=== PATIENT | female | born 1960 | race Caucasian/White ===

== ENCOUNTER → 2017-10-13 | Outpatient (CLI) | payer BC ==
[~2017-10-13] MED LIST: GADOBUTROL 7.5 MMOL/7.5 ML VIAL INT ART ONE; IOHEXOL 300 MG/ML 50 ML VIAL. INT ART ONE; LIDOCAINE 1% Multi-Dose 20 ML VIAL. ID ONE
--- NOTE | 2017-10-13 17:07 | KCIC ---
MR arthrogram of the right shoulder Indication: Right shoulder pain. Prior rotator cuff repair. Technique: Intra-articular contrast injected into the glenohumeral joint and is reported separately. Routine 4 plane sequences were obtained, including ABER positioning. COMPARISON: Not currently available. Findings: Acromioclavicular joint: Mildly degenerative. No significant undersurface mass effect. Rotator cuff: Prior surgical reattachment. Severe thinning of the supraspinatus tendon, measuring as little as 1 mm. There is retraction of undersurface fibers by 2.0 cm. There is a tiny area at the critical zone of the supraspinatus where there appears to be a 1 mm pinpoint through and through defect with minimal spill of contrast into the adjacent subdeltoid bursa. Coronal series 6, image 14. Infraspinatus tendon intact. Subscapularis tendon intact. Mild rotator cuff muscle atrophy. Articular cartilage: No acute cartilage defect or advanced DJD. Labrum: Mild heterogeneity of labral signal, compatible with degeneration. No clear cut labral detachment. Biceps tendon: Intact Bones: No lesion or acute fracture. Soft tissue: No acute findings. Impression: Severe thinning of the supraspinatus tendon, compatible with deep undersurface tearing with undersurface fiber retraction. There is evidence of a tiny pinpoint full-thickness tear through the bursal layer, measuring about 1 mm. Electronically signed by: Sergey Melendrez MD (10/13/2017 5:03 PM) [id number]
--- NOTE | 2017-10-13 17:10 | KCIC ---
PROCEDURE: Right shoulder injection using fluoroscopic guidance, prior to MR. HISTORY: Shoulder pain. Prior rotator cuff repair. TECHNIQUE: The procedure was explained to the patient as were potential risks, including among others infection, bleeding or allergic reaction. All questions were answered. Informed written and verbal consent was obtained. The shoulder was prepped and draped in the usual sterile manner. Following administration of local anesthetic, a 22-gauge needle was advanced into the anterior shoulder. Following negative aspiration, 12 cc of a solution of 5cc Omnipaque-300 contrast, 5 cc 1% lidocaine, 10 cc normal saline, and 0.1 cc gadolinium was injected without difficulty. The needle was removed. There was good hemostasis at the injection site. The shoulder was briefly exercised. The patient left in stable condition without immediate complication. 2 spot images are obtained. There is some accumulation of contrast in the substance of the supraspinatus tendon. Further evaluation will be obtained on the MR exam. FLUOROSCOPY TIME:?53 seconds Electronically signed by: Sergey Melendrez MD (10/13/2017 5:07 PM) [id number]
== END | disposition home or self-care (01) ==
LOC: KCIC 15:13
PROVIDERS: ATTEND Orthopaedic Surgery
DX: M75.101 Unspecified rotator cuff tear or rupture of right shoulder, not specified as traumatic (principal)
CPT/HCPCS: 73040; 73222; A9585; Q9967

== ENCOUNTER → 2020-08-20 | Outpatient (CLI) | payer BC, OTHER | LOC: LAB 13:08 | PROVIDERS: ATTEND Internal Medicine Pulmonary Disease | DX: R51.9 Headache, unspecified (principal); R50.9 Fever, unspecified; M79.10 Myalgia, unspecified site; Z20.828 Contact with and (suspected) exposure to other viral communicable diseases | CPT/HCPCS: U0003-CS ==

== ENCOUNTER → 2021-06-28 | Outpatient (CLI) | payer OTHER | LOC: LAB 13:33 | PROVIDERS: ATTEND Internal Medicine Pulmonary Disease | DX: Z20.822 Contact with and (suspected) exposure to COVID-19 (principal) | CPT/HCPCS: U0003; U0005 ==

== ENCOUNTER → 2021-07-02 | Outpatient (CLI) | payer OTHER | LOC: LAB 13:49 | PROVIDERS: ATTEND Internal Medicine Pulmonary Disease | DX: Z20.822 Contact with and (suspected) exposure to COVID-19 (principal) | CPT/HCPCS: U0003; U0005 ==

== ENCOUNTER → 2021-08-06 | Outpatient (CLI) | payer OTHER | LOC: LAB 08:24 | PROVIDERS: ATTEND Internal Medicine Pulmonary Disease | DX: Z20.822 Contact with and (suspected) exposure to COVID-19 (principal) | CPT/HCPCS: U0003 ==

== ENCOUNTER → 2021-08-09 | Outpatient (CLI) | payer OTHER | LOC: LAB 06:47 | PROVIDERS: ATTEND Internal Medicine Pulmonary Disease | DX: Z20.822 Contact with and (suspected) exposure to COVID-19 (principal) | CPT/HCPCS: U0003; U0005 ==